=== PATIENT | male | born 1975 | race Caucasian/White ===

== ENCOUNTER 2017-06-21 06:49 | Emergency (ER) | payer BC, OTHER ==
[2017-06-21] MEDS ORDERED: Metoclopramide 10 MG/2 ML SDV IVPUSH ONE (07:12)
--- NOTE | 2017-06-21 07:12 | EDM.PDOC ---
ED HPI GENERAL MEDICAL PROBLEM - General Chief Complaint: Respiratory Problem Stated Complaint: VOMITING AND DIARRHEA Time Seen by Provider: 06/21/17 07:04 Source of Information: Reports: Patient History Limitations: Reports: No Limitations - History of Present Illness INITIAL COMMENTS - FREE TEXT/NARRATIVE: 41-year-old male reports that he's been ill for the better part of 3 weeks with severe paroxysmal cough. Intermittent fever and chills particularly at nighttime. No wheezing. Cough is occasionally productive of yellowish greenish tinged sputum. Were some degree of sinusitis and postnasal drip. Occasional headaches. Hurts in his upper abdomen to cough and a lot of his vomiting is occurred posttussive. Is been no hematemesis. He is also continued to have loose stools 3 or 4 per day. 21 he is able to eat. Appetite has been completely lost. He feels lightheaded weak dizzy and feels he lost close to 10 pounds. Children seem to start out at home with colds which he felt started initially but week later he did have much more aching headache and fever suggestive of influenza. Chief complaint is pain in his epigastrium radiating through to his back. This may be due to metabolic acidosis. Stools have been loose watery without blood. He's been on 2 courses of antibiotics first one was a Z-Brayan second one was doxycycline for about 10 days. Neither one seem to help much. This suggest viral etiology to his illness. Question is whether his diarrhea secondary to C. difficile enteritis. Onset: Sudden Onset Date: 06/04/17 Duration: Week(s):, Constant Location: Reports: Chest (Paroxysmal intermittently low-grade productive sputum of greenish color.), Abdomen (Nausea and vomiting and loose diarrhea usually 3 or 4 times per day.) Quality: Reports: Ache Severity: Moderate (Cough is severe paroxysmal keeps him awake good portion of the night. But in the easy chair most of this week trying to get some sleep Laying flat.) Improves with: Reports: Other (Slight improvement sitting up in the easy chair to sleep.) Worsens with: Reports: Other, Movement (Exposure to cool air or lying down.) Context: Denies: Activity, Exercise, Lifting, Sick Contact, Trauma, Other Associated Symptoms: Reports: Chest Pain, Cough, cough w sputum, Fever/Chills, Headaches, Loss of Appetite, Malaise, Nausea/Vomiting, Shortness of Breath, Weakness (Mostly due to severe cough.). Denies: No Other Symptoms, Confusion ( Central chest from coughing so much), Diaphoresis, Rash, Seizure, Syncope Treatments OVEN LOADER: Reports: Other (see below) Lower Back Pain Score (Numeric/FACES): 9 Middle Abdomen Pain Score (Numeric/FACES): 5 - Related Data Allergies Allergy/AdvReac Type Severity Reaction Status Date / Time No Known Allergies Allergy Verified 06/21/17 06:59 Home Meds: Home Meds Chlorpheniramine/HYDROcodone [Tussionex Pennkinetic] 5 ml PO Q12H PRN #80 ml 01/28 [Rx] Levofloxacin [Levaquin] 500 mg PO DAILY #7 tab 06/21/17 [Rx] Prednisone [IJD: predniSONE] 20 mg PO ASDIRECTED #18 tab 06/21/17 [Rx] Social & Family History - Living Situation & Occupation Living situation: Reports: Occupation: Employed ED ROS GENERAL - Review of Systems Review Of Systems: See Below Constitutional: Reports: Fever, Chills, Malaise, Weakness, Fatigue, Night Sweats , Diaphoresis, Decreased Appetite, Weight Loss HEENT: Reports: Sinus Problem (Mild sinus congestion with awareness of postnasal drip.) Respiratory: Reports: Shortness of Breath, Cough (Paroxysmal cough intermittently productive of slight greenish tinge sputum.). Denies: Wheezing, Pleuritic Chest Pain, Hemoptysis Cardiovascular: Reports: Chest Pain, Blood Pressure Problem, Dyspnea on Exertion. Denies: Claudication, Edema, Lightheadedness, Orthopnea, Palpitations , PND Endocrine: Reports: Fatigue (Blood pressure is up today at 141/88 but not known to be hypertensive.) GI/Abdominal: Reports: Abdominal Pain (Particular upper abdomen from vomiting and from coughing so much.), Diarrhea, Decreased Appetite, Nausea, Vomiting ( Emesis is been mostly food and bile. It is usually posttussive.). Denies: Constipation, Difficulty Swallowing, Flatus, Hematemesis (Loose watery stool usually 3-4 times per day without blood.), Hematochezia, Melena : Reports: Flank Pain (Bilaterally with mid abdominal pain.) Musculoskeletal: Reports: No Symptoms Skin: Reports: No Symptoms Neurological: Reports: Dizziness Psychiatric: Reports: No Symptoms Hematologic/Lymphatic: Reports: No Symptoms Immunologic: Reports: No Symptoms ED EXAM, GENERAL - Physical Exam Exam: See Below Exam Limited By: No Limitations General Appearance: Alert, WD/WN, No Apparent Distress Eye Exam: Bilateral Eye: Normal Inspection Ears: Normal TMs Throat/Mouth: Normal Inspection, Normal Lips, Normal Teeth, Normal Oropharynx Head: Atraumatic, Normocephalic Neck: Normal Inspection, Supple, Non-Tender, Full Range of Motion. No: Lymphadenopathy (L), Lymphadenopathy (R) Respiratory/Chest: No Respiratory Distress, Lungs Clear, Normal Breath Sounds, No Accessory Muscle Use, Chest Non-Tender, Other Cardiovascular: Normal Peripheral Pulses, Regular Rate, Rhythm, No Edema, No Gallop, No Murmur (Intermittent paroxysmal cough.) Peripheral Pulses: 2+: Posterior Tibial (L), Posterior Tibial (R), Dorsalis Pedis (L), Dorsalis Pedis (R) GI/Abdominal: Normal Bowel Sounds, Soft, No Organomegaly, No Abnormal Bruit, No Mass, Pelvis Stable, Tender (Mild tenderness in the epigastrium.) Back Exam: Normal Inspection, Full Range of Motion. No: CVA Tenderness (L), CVA Tenderness (R) Extremities: Normal Inspection, Normal Range of Motion, Non-Tender, No Pedal Edema Neurological: Alert, Oriented, CN II-XII Intact, Normal Cognition, Normal Gait, No Motor/Sensory Deficits Psychiatric: Normal Affect, Normal Mood Skin Exam: Warm, Dry, Intact, Normal Color, No Rash Course - Vital Signs Last Recorded V/S: Last Vital Signs Temp 36.6 C 06/21/17 07:00 Pulse 90 06/21/17 07:00 Resp BP 141/88 H 06/21/17 07:00 Pulse Ox 98 06/21/17 07:00 - Orders/Labs/Meds Orders: Active Orders 24 hr Category Date Time Status B. PERTUSSIS ABS, IGA, IGG,IGM [REF] Stat Lab 06/21/17 07:17 Received C DIFFICILE BY PCR W/NAP1 [MOLEC] Stat Lab 06/21/17 07:14 Ordered Labs: Laboratory Tests 06/21/17 06/21/17 Range/Units 07:17 07:17 WBC 8.93 (4.23-9.07) K/mm3 RBC 5.34 (4.63-6.08) M/mm3 Hgb 16.0 (13.7-17.5) gm/L Hct 46.3 (40.1-51.0) % MCV 86.7 (79.0-92.2) fl MCH 30.0 (25.7-32.2) pg MCHC 34.6 (32.2-35.5) g/dl RDW Std Deviation 44.7 H (35.1-43.9) fL Plt Count 195 (163-337) K/mm3 MPV 9.8 (9.4-12.3) fl Neutrophils % (Manual) 72 H (40-60) % Band Neutrophils % 9 (0-10) % Lymphocytes % (Manual) 13 L (20-40) % Atypical Lymphs % 0 % Monocytes % (Manual) 5 (2-10) % Eosinophils % (Manual) 1 (0.8-7.0) % Basophils % (Manual) 0 L (0.2-1.2) Platelet Estimate Adequate Plt Morphology Comment Normal RBC Morph Comment Normal Sodium 138 (136-145) mEq/L Potassium 3.9 (3.5-5.1) mEq/L Chloride 101 (98-107) mEq/L Carbon Dioxide 24 (21-32) mEq/L Anion Gap 16.9 H (5-15) BUN 8 (7-18) mg/dL Creatinine 1.2 (0.7-1.3) mg/dL Est Cr Clr Drug Dosing 78.38 mL/min Estimated GFR (MDRD) > 60 (>60) mL/min BUN/Creatinine Ratio 6.7 L (14-18) Glucose 129 H (74-106) mg/dL Calcium 9.0 (8.5-10.1) mg/dL Total Bilirubin 0.3 (0.2-1.0) mg/dL AST 60 H (15-37) U/L ALT 80 H (16-63) U/L Alkaline Phosphatase 64 (46-116) U/L C-Reactive Protein 0.9 (<1.0) mg/dL Total Protein 7.8 (6.4-8.2) g/dl Albumin 3.9 (3.4-5.0) g/dl Globulin 3.9 gm/dL Albumin/Globulin Ratio 1.0 (1-2) Lipase 82 (73-393) U/L Mycoplasma pneumon IgM Negative (NEGATIVE) Meds: Medications Discontinued Medications Generic Name Dose Route Start Last Admin Trade Name Naveen PRN Reason Stop Dose Admin Dextrose/Sodium Chloride 1,000 mls @ 999 mls/hr 06/21/17 07:15 06/21/17 07:20 Dextrose 5%-Normal Saline IV 999 mls/hr ASDIRECTED DANIELA Administration Ketorolac Tromethamine 30 mg 06/21/17 07:15 06/21/17 07:37 Toradol IVPUSH 30 mg ONETIME DANIELA Administration Metoclopramide HCl 7.5 mg 06/21/17 07:12 06/21/17 07:21 Reglan IVPUSH 06/21/17 07:13 7.5 mg ONETIME ONE Administration - Radiology Interpretation Free Text/Narrative:: 41-year-old male who is been ill for about 3 weeks with upper respiratory tract infection. This started with cold-like symptoms with nasal congestion postnasal drip paroxysmal severe cough. Over the week following he developed more fever chills body aches. It's unclear whether he was checked for influenza. He did attend the clinic was placed initially on a Z-Brayan which she completed without any relief. He subsequently was seen and was placed on Doxil cycle 100 mg twice a day for 10 days. Reports no improvement with this either. This suggests viral etiology to his severe paroxysmal cough. Coughing culminates in posttussive emesis. He's been hardly able to eat or keep anything down. Now he's weak dizzy. Is also been having loose watery diarrhea 3 or 4 stools per day depending on what he eats. Minimal cramping. His antibiotic usage raises concerns for possible C. difficile enteritis. Has not seen any blood in his stools. Plan chest x-ray one view of the abdomen to be done. IV fluids will be D5 normal saline at open. Given Reglan 10 mg IV with Toradol 30 mg IV. Influenza screen will be carried out. Routine labs including mycoplasma titer and pertussis titers to be done. Stool be collected for culture and sensitivity and C. difficile if one becomes available. Routine labs including a serum lipase and CRP. Suspect viral upper respiratory tract infection. He may benefit from a short course of steroids or inhalational steroids to help stop his severe coughing. His stools may be starvation stools from not being able to eat for the last several weeks. - Re-Assessments/Exams Free Text/Narrative Re-Assessment/Exam: 06/21/17 07;40: Chest x-ray is within normal limits showing no evidence of a definitive pneumonia. X-ray of the abdomen shows normal air gas patterns. There is a slight amount of stool in the transverse colon but no sign of any other pathology. 06/21/17 08:07 White count is 8.93 with differential pending. Hemoglobin is 16.0 with hematocrit of 46.3. Platelet count is 195,000. Sodium is 138 with potassium of 3.9. Chloride is 11 with a bicarbonate of 24. And a gap is elevated at 16.9. BUN is 8. GFR is greater than 60. Glucose is 129. Calcium is 9.0. AST is 60 with a bilirubin of 0.3. ALT is elevated at 80. Alkaline phosphatase 264. C-reactive protein is 0.9 please is normal at 82. Mycoplasma pneumonia IgM antibody is pending. 06/21/17 08:27 Differential is now back on lab work showing 72% neutrophils and 9% band cells. C-reactive protein is 0.9. Mycoplasma titer is negative. 06/21/17 08;50: Of note influenza screen is positive for influenza type a. Patient will be started on Tamiflu 75 mg twice a day. Prescription was phoned into [facility] at [facility]. Departure - Departure Time of Disposition: 08:55 Disposition: Home, Self-Care 01 Condition: Fair Clinical Impression: Bronchitis, Influenza A - Discharge Information Prescriptions: Chlorpheniramine/HYDROcodone [Tussionex Pennkinetic] 5 ml PO Q12H PRN #80 ml PRN Reason: Cough relief Levofloxacin [Levaquin] 500 mg PO DAILY #7 tab Prednisone [IJD: predniSONE] 20 mg PO ASDIRECTED #18 tab Instructions: Acute Bronchitis Referrals: PCP,None [Primary Care Provider] - Forms: ED Department Discharge Additional Instructions: Evaluation the emergency room today in regards to persistent upper respiratory tract infection with severe paroxysmal cough to the point of emesis and loose stools. Lab work done today reveals mild dehydration. It showed a fairly normal white count but it did show band cells suggesting there is still a underlying bacterial infection in her system. Chest x-ray was negative for pneumonia. Abdominal x-ray was essentially normal as well. Suspect sinusitis with postnasal drip contributing to paroxysmal cough. However severe inflammation of the upper airway irritant receptors is causing the severe paroxysmal cough to the point of vomiting. I have sent away blood work for whooping cough which will take a week to come back. If you have this infection I will call you or the [facility] would call you. Treatment today is suggested be prednisone 20 mg twice daily breakfast and supper for 6 days then 1 tablet in the morning only for another 6 days to reduce inflammation of the upper airway. Antibiotic is to be Levaquin 500 mg once daily for 7 days. Thirdly though should be cough syrup Tussionex 5 mils taken about an hour before bed as well as in the morning i.e. every 12 hours as needed for cough relief. Hopefully there will be gradual improvement over the next 4-5 days. Triaminic resume normal appetite except for milk products and no apple or grape juice until stools are formed backup. I believe the diarrhea may be due to will call starvation stools due to poor oral intake over the last several weeks versus antibiotic induced problems. If not back to normal within a week then I would suggest filling the prescription for Flovent inhaler 2 puffs every 6-8 hours initially until cough settle down and can then continue it twice daily until no cough for 3 days and discontinue. You may have to use this medication for up to 10-14 days to get the cough to stop completely. Follow-up with personal doctor if any further problems occur. - My Orders Last 24 Hours: My Active Orders 06/21/17 07:14 C DIFFICILE BY PCR W/NAP1 [MOLEC] Stat 06/21/17 07:17 B. PERTUSSIS ABS, IGA, IGG,IGM [REF] Stat - Assessment/Plan Last 24 Hours: My Active Orders 06/21/17 07:14 C DIFFICILE BY PCR W/NAP1 [MOLEC] Stat 06/21/17 07:17 B. PERTUSSIS ABS, IGA, IGG,IGM [REF] Stat
[2017-06-21] MEDS ORDERED: Ketorolac 30 MG/ML SDV IVPUSH SCH (07:15)
[2017-06-21] MEDS ORDERED: Dextrose 5%-0.9% NaCl 1,000 ML IV SCH (07:15)
--- NOTE | 2017-06-21 09:05 | CR ---
Chest: Frontal view of the chest was obtained. Comparison: No prior study. Heart size and mediastinum are normal. Lungs are clear. Bony structures are grossly intact. Impression: 1. Nothing acute is identified on frontal chest x-ray. Diagnostic code #1
--- NOTE | 2017-06-21 09:05 | CR ---
Abdomen: Supine view of the abdomen was obtained. Comparison: No prior abdominal x-ray. Bowel gas pattern is normal. No abnormal calcifications or soft tissue abnormality is seen. Bony structures are unremarkable. Impression: 1. Nothing acute is seen on supine abdominal x-ray. Diagnostic code #1
== END 2017-06-21 08:58 | disposition home or self-care (01) ==
LOC: JD.ED 06:49
DX: J10.1 Influenza due to other identified influenza virus with other respiratory manifestations (principal); Z79.899 Other long term (current) drug therapy
CPT/HCPCS: 36415; 71045; 74018; 80053; 83690; 85025; 86140; 86615; 86738; 87804; 96361; 96374; 96375; 99284; J1885; J2765; J7042

== ENCOUNTER 2017-09-29 12:42 | Emergency (ER) | payer SELFPAY ==
--- NOTE | 2017-09-29 13:59 | EDM.PDOC ---
ED HPI GENERAL MEDICAL PROBLEM - General Chief Complaint: Respiratory Problem Stated Complaint: COUGH SENT BY [facility] Time Seen by Provider: 09/29/17 12:51 Source of Information: Reports: Patient History Limitations: Reports: No Limitations - History of Present Illness INITIAL COMMENTS - FREE TEXT/NARRATIVE: The patient states that he has had a cough, productive of greenish/yellowish sputum, for the past 2 weeks. It has been worse over the past 4 days, especially at night. He states that on 4 occasions over the past 3 days, he has had cough-associated emesis or syncope. No recent fever. Otherwise, no recent nausea, vomiting, or constipation. He reports that he has had watery diarrhea this week. No urinary symptoms. In addition to the above symptoms, the patient also reports nasal and sinus congestion with postnasal drip, along with wheezing or chest rattling, worse if the patient is supine. The patient states that he has tried DayQuil, NyQuil, Mucinex, and Tylenol Maximum Severe Sinus. He states that the NyQuil helps him to sleep, but the other medicines don't seem to have done anything. No prior medical evaluation for this complaint. The patient does not have a PCP. Throat Pain Score (Numeric/FACES): 3 - Related Data Allergies Allergy/AdvReac Type Severity Reaction Status Date / Time No Known Allergies Allergy Verified 06/21/17 06:59 Home Meds: Home Meds . [No Known Home Meds] 09/29/17 [History] Past Medical History - Past Surgical History Respiratory Surgical History: Reports: Lung Biopsies (per bronchoscopy) GI Surgical History: Reports: Appendectomy Social & Family History - Tobacco Use Smoking Status *Q: Current Every Day Smoker Years of Tobacco use: 26 Packs/Tins Daily: 1 Packs/Tins Daily Comment: Down from 2.5 ppd - Caffeine Use Caffeine Use: Reports: Coffee - Alcohol Use Alcohol Use History: Yes Alcohol Use Frequency: Socially - Recreational Drug Use Recreational Drug Use: No - Living Situation & Occupation Living situation: Reports: , with Spouse, with Family (3 kids) 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 ED EXAM, GENERAL - Physical Exam Exam: See Below Exam Limited By: No Limitations General Appearance: Alert, WD/WN, No Apparent Distress Eye Exam: Bilateral Eye: Normal Inspection Ears: Normal External Exam, Hearing Grossly Normal Nose: Normal Inspection, No Blood Throat/Mouth: Normal Inspection, Normal Lips, Normal Voice, No Airway Compromise Head: Atraumatic, Normocephalic Neck: Normal Inspection, Full Range of Motion Respiratory/Chest: No Respiratory Distress, No Accessory Muscle Use, Rhonchi ( Upper lung ortiz, bilaterally. Rhonchi cleared with a cough, but recurred within a minute. Rhonchi were greater with the patient supine, less with the patient upright.). No: Crackles, Wheezing Cardiovascular: Normal Peripheral Pulses, Regular Rate, Rhythm, No Edema, No Gallop, No JVD, No Murmur, No Rub Peripheral Pulses: 4+: Radial (L), Radial (R) GI/Abdominal: Normal Bowel Sounds, Soft, Non-Tender, No Organomegaly, No Distention, No Abnormal Bruit, No Mass (Male) Exam: Deferred Rectal (Males) Exam: Deferred Back Exam: Normal Inspection, Full Range of Motion, NT Extremities: Normal Inspection, Normal Range of Motion, No Pedal Edema, Normal Capillary Refill Neurological: Alert, Oriented, Normal Cognition, No Motor/Sensory Deficits Psychiatric: Normal Affect Skin Exam: Warm, Dry, Intact, Normal Color, No Rash Course - Vital Signs Last Recorded V/S: Last Vital Signs Temp 36.6 C 09/29/17 12:48 Pulse 62 09/29/17 12:48 Resp 20 09/29/17 12:48 BP 149/85 H 09/29/17 12:48 Pulse Ox 96 09/29/17 12:48 - Re-Assessments/Exams Free Text/Narrative Re-Assessment/Exam: 09/29/17 13:54 2-view chest radiograph appears to be grossly normal. Cardiac silhouette is within normal limits. No pulmonary vascular congestion. No pleural effusions. No focal infiltrate. No pneumothorax. Formal read per the Radiologist pending. 09/29/17 14:01 The chest x-ray results discussed with the patient. Clinically, the patient has acute bronchitis. Unfortunately, there are no medicines that we can give to limit the course of bronchitis - it will have to run its course, typically 1-3 weeks. Current guidelines do not recommend treatment with albuterol or Atrovent , and even advised against giving ibuprofen. They recommend Tylenol only for discomfort. They recommend [id number] cough or cold remedies, only to decrease patient's requests for antibiotics, while noting that [id number] cough or cold remedies have not been shown to be of clinical benefit. In this case, I explained to the patient that bronchitis is a viral illness, and that antibiotics are not indicated. The patient had no problem with that. I provided the patient some patient information regarding acute bronchitis. Departure - Departure Time of Disposition: 14:03 Disposition: Home, Self-Care 01 Condition: Good Clinical Impression: Acute bronchitis - Discharge Information Instructions: Acute Bronchitis, Adult, [id number] Referrals: PCP,Pieter [Primary Care Provider] - Felicitas Braswell [Physician] - Forms: ED Department Discharge Additional Instructions: You were seen in the emergency room for a persistent cough for the last 2 weeks , sometimes associated with vomiting or even passing out. Workup in the ER included a chest x-ray, which returned normal. Clinically, you are suffering from acute bronchitis, a viral infection of the tubes leading into your lungs. Unfortunately, there are no medicines to get rid of bronchitis - it will have to run its course, which typically takes 1-3 weeks. As discussed, there are no medicines that have been shown to improve the symptoms of bronchitis. You may take [id number] Tylenol as needed for aches or pains, however, we do not recommend you take [id number] cough and cold remedies, as they do not work, but do have some side effects. If your cough persists for more than another week, we recommend that you follow- up with Dr. Braswell in the clinic. If any other problems, please do not hesitate to return to the ER.
--- NOTE | 2017-09-30 12:07 | CR ---
Chest: Two views of the chest were obtained. Comparison: Prior chest x-ray of 06/21/17. Heart size and mediastinum are normal. Lungs are clear. Bony structures are unremarkable. Diaphragms are slightly flattened on the lateral view. Impression: 1. Possible slightly hyperinflated lungs. This may represent good inspiratory effort but please exclude the patient as being a smoker. 2. Nothing acute is otherwise seen on two-view chest x-ray. Diagnostic code #3
== END 2017-09-29 14:25 | disposition home or self-care (01) ==
LOC: JD.ED 12:42
DX: J20.9 Acute bronchitis, unspecified (principal); F17.210 Nicotine dependence, cigarettes, uncomplicated
CPT/HCPCS: 71046; 71046-26; 99283; 99284

== ENCOUNTER 2018-06-20 18:27 | Emergency (ER) | payer BC, OTHER ==
[2018-06-20] MEDS ORDERED: Fluorescein 0.6 MG Ophth Strip EYELF ONE (18:42)
[2018-06-20] MEDS ORDERED: Proparacaine 0.5% Ophth Soln 15 ML Bottle EYELF ONE (18:42)
[2018-06-20] MEDS ORDERED: Erythromycin Base 0.5% Ophth Oint 1 GM Tube EYEBOTH ONE (19:15)
--- NOTE | 2018-06-20 19:24 | EDM.PDOC ---
ED HPI GENERAL MEDICAL PROBLEM - General Chief Complaint: Eye Problems Stated Complaint: METAL IN LEFT EYE Time Seen by Provider: 06/20/18 18:59 Source of Information: Reports: Patient History Limitations: Reports: No Limitations - History of Present Illness INITIAL COMMENTS - FREE TEXT/NARRATIVE: This is a 42-year-old male. He states that today around 4 4:30 PM he was working on a muffler underneath his car and he was wearing his regular glasses and he started grinding the muffler after welding it and he felt two things pop into his left eye. Since that time the left eye has been very irritated and feels like something is at the 1 o'clock position in his left eye. His visual acuity he states is not changed markedly at this point. He denies any other acute symptoms. He normally sees Dr. Rascon who is his eye doctor. Patient is up- to-date with his tetanus. He states he normally wears glasses. Left Eye Pain Score (Numeric/FACES): 5 - Related Data Allergies Allergy/AdvReac Type Severity Reaction Status Date / Time No Known Allergies Allergy Verified 06/21/17 06:59 Home Meds: Home Meds . [No Known Home Meds] 09/29/17 [History] Past Medical History Respiratory History: Reports: Pneumonia, Recurrent, Other (See Below) Other Respiratory History: lung biopsy Genitourinary History: Reports: Other (See Below) Other Genitourinary History: chronic kidney infections as a child Musculoskeletal History: Reports: Other (See Below) Other Musculoskeletal History: pin into left 5th digit - Past Surgical History Respiratory Surgical History: Reports: Lung Biopsies GI Surgical History: Reports: Appendectomy Social & Family History - Tobacco Use Smoking Status *Q: Current Every Day Smoker Years of Tobacco use: 24 Packs/Tins Daily: 0.5 - Caffeine Use Caffeine Use: Reports: Coffee, Energy Drinks - Recreational Drug Use Recreational Drug Use: No - Living Situation & Occupation Living situation: Reports: , with Spouse, with Family (3 kids) 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) ED ROS GENERAL - Review of Systems Review Of Systems: See Below Constitutional: Denies: Fever, Chills HEENT: Reports: Glasses, Other (As per history of present illness) Respiratory: Reports: No Symptoms Cardiovascular: Reports: No Symptoms Endocrine: Reports: No Symptoms GI/Abdominal: Reports: No Symptoms : Reports: No Symptoms Musculoskeletal: Reports: No Symptoms Skin: Reports: No Symptoms Neurological: Reports: No Symptoms Psychiatric: Reports: No Symptoms Hematologic/Lymphatic: Reports: No Symptoms ED EXAM GENERAL W FULL EYE - Physical Exam Exam: See Below Exam Limited By: No Limitations General Appearance: Alert, WD/WN, No Apparent Distress Eye Exam: Bilateral Eye: Other (Examination of the left eye reveals a foreign body at the 3 o'clock position, I do not see anything at the 11 or 1 o'clock position, his lids were everted and wiped and there was no foreign body, I attempted to remove the speculum 3:00 with a Q-tip but it was secured to the cornea I used an eye spud was unable to get it to lift off the cornea, therefore I put some antibiotic ointment and an eye patch in [place] follow-up with his eye doctor on Saturday.) Visual Acuity (R) 20/: 25 Visual Acuity (L) 20/: 40 Eyelids: Left: Edema (No edema), Lid Everted for Exam (No foreign body noted) Conjunctiva & Sclera: Left: Normal Appearance Cornea Exam: Left: Foreign Body (As described above) Extraocular Movements: Bilateral: Intact Pupillary Reaction: Bilateral: Brisk Anterior Chamber: Left: Normal Appearance Ears: Normal External Exam Nose: Normal Inspection Throat/Mouth: Normal Inspection, Normal Lips, Normal Voice, No Airway Compromise Neck: Supple Respiratory/Chest: No Respiratory Distress Back Exam: Full Range of Motion Extremities: Normal Inspection, Normal Range of Motion Neurological: Alert, Oriented Psychiatric: Normal Affect, Normal Mood Skin Exam: Warm, Dry Course - Vital Signs Last Recorded V/S: Last Vital Signs Temp 98.1 F 06/20/18 18:49 Pulse 64 06/20/18 18:49 Resp 20 06/20/18 18:49 BP 141/95 H 06/20/18 18:49 Pulse Ox 97 06/20/18 18:49 - Orders/Labs/Meds Meds: Medications Discontinued Medications Generic Name Dose Route Start Last Admin Trade Name Freq PRN Reason Stop Dose Admin Erythromycin 1 gm 06/20/18 19:15 06/20/18 19:24 Erythromycin 0.5% Ophth Oint EYEBOTH 06/20/18 19:16 1 dose ONETIME ONE Administration Fluorescein Sodium 0.6 mg 06/20/18 18:42 06/20/18 19:10 Ful-Leisa EYELF 06/20/18 18:43 0.6 mg ONETIME ONE Administration Proparacaine HCl 2 ml 06/20/18 18:42 06/20/18 18:48 Proparacaine 0.5% Ophth Soln EYELF 06/20/18 18:43 2 drop ONETIME ONE Administration Departure - Departure Time of Disposition: 19:18 Disposition: Home, Self-Care 01 Condition: Fair Clinical Impression: Left corneal abrasion Qualifiers: Encounter type: initial encounter Qualified Code(s): S05.02XA - Injury of conjunctiva and corneal abrasion without foreign body, left eye, initial encounter Corneal FB (foreign body) Qualifiers: Encounter type: initial encounter Laterality: left Qualified Code(s): T15.02XA - Foreign body in cornea, left eye, initial encounter - Discharge Information *PRESCRIPTION DRUG MONITORING PROGRAM REVIEWED*: Not Applicable *COPY OF PRESCRIPTION DRUG MONITORING REPORT IN PATIENT IRMA: Not Applicable Instructions: Eye Foreign Body, [id number] Referrals: PCP,None [Primary Care Provider] - Forms: ED Department Discharge Additional Instructions: Continue with the eye patch over the weekend, if the eye gets real irritated get some Artificial Tears from [employer] and use them as needed for irritation, call Dr. Rascon Saturday morning for evaluation and removal of the foreign body, return to the ER if your symptoms worsen over the weekend
== END 2018-06-20 19:35 | disposition home or self-care (01) ==
LOC: JD.ED 18:27
DX: T15.02XA Foreign body in cornea, left eye, initial encounter (principal); H57.89 Other specified disorders of eye and adnexa; F17.210 Nicotine dependence, cigarettes, uncomplicated; W45.8XXA Other foreign body or object entering through skin, initial encounter
CPT/HCPCS: 65220; 99283; A9270